=== PATIENT | female | born 1995 | race Caucasian/White ===

== ENCOUNTER 2018-01-29 16:12 | Outpatient (CLI) | payer OTHER ==
--- NOTE | 2018-01-29 16:56 | Non Stress Test Report ---
Non Stress Test Datetime Report Generated by CPN: 01/29/2018 16:56 DEMOGRAPHIC EGA NST: 40.0 INDICATION Indication for Study: Ordered by Provider MONITORING Monitor Explained: Monitor Explained; Test Explained; Patient Verbalized Understanding Time on Monitor: 01/29/2018 16:21 Time off Monitor: 01/29/2018 16:44 NST Duration: 23 NST INTERVENTIONS NST Interventions: PO Hydration; Reposition Patient Physician Notified NST: J.Harvey, CNM BABY A: [id number] BABY A Movement : Present Contraction Frequency : Irregular FHR Baseline : 130 Accelerations : 15X15 Decelerations : None Variability : Moderate 6-25bpm NST Review: Meets Criteria for Reactive NST NST Review and Verified By : Paula Carrillo RN NST Results: Reactive NST REPORT Report Trigger: Send Report
== END 2018-01-29 16:51 | disposition home or self-care (01) ==
LOC: LC 16:12
PROVIDERS: ATTEND Obstetrics & Gynecology
PROC: 4A1HXCZ Monitoring of Products of Conception, Cardiac Rate, External Approach (ICD-10-PCS; principal; 2018-01-29)
DX: O48.0 Post-term pregnancy (principal); Z3A.40 40 weeks gestation of pregnancy
CPT/HCPCS: 59025

== ENCOUNTER 2018-02-04 14:25 | Outpatient (CLI) | payer OTHER ==
[2018-02-04 15:26] LABS: APPEARANCE,URINE CLEAR; BILIRUBIN,URINE NEGATIVE (NEGATIVE); COLOR,URINE STRAW; GLUCOSE, URINE NEGATIVE (NEGATIVE); KETONES,URINE NEGATIVE (NEGATIVE); LEUKOCYTE ESTERASE,URINE TRACE (NEGATIVE); NITRITE,URINE NEGATIVE (NEGATIVE); PROTEIN,URINE NEGATIVE (NEGATIVE); URINE SPECIFIC GRAVITY 1.005; UROBILINOGEN,URINE NEGATIVE mg/dL (<2.0)
--- NOTE | 2018-02-04 15:28 | Non Stress Test Report ---
Non Stress Test Datetime Report Generated by CPN: 02/04/2018 15:28 DEMOGRAPHIC EGA NST: 40.6 INDICATION Indication for Study: Other Indication for Study (NST) Other: Labor Check MONITORING Monitor Explained: Monitor Explained; Test Explained; Patient Verbalized Understanding Time on Monitor: 02/04/2018 14:43 Time off Monitor: 02/04/2018 15:13 NST Duration: 30 NST INTERVENTIONS Physician Notified NST: Dr. Maki BABY A: [id number] BABY A Movement : Present Contraction Frequency : 3-5 FHR Baseline : 145 Accelerations : 15X15 Decelerations : None Variability : Moderate 6-25bpm NST Review: Meets Criteria for Reactive NST NST Review and Verified By : B Baidy RN NST Results: Reactive NST REPORT Report Trigger: Send Report
[2018-02-04 15:44] LABS: URINE AMPHETAMINES SCREEN NEGATIVE; URINE BARBITURATES SCREEN NEGATIVE; URINE BENZODIAZEPINES SCREEN NEGATIVE; URINE COCAINE SCREEN NEGATIVE; URINE MARIJUANA (THC) SCREEN NEGATIVE; URINE METHADONE SCREEN NEGATIVE; URINE PHENCYCLIDINE SCREEN NEGATIVE
== END 2018-02-04 16:04 | disposition home or self-care (01) ==
LOC: LC 14:25
PROVIDERS: ATTEND Obstetrics & Gynecology Gynecology
PROC: 4A1HXCZ Monitoring of Products of Conception, Cardiac Rate, External Approach (ICD-10-PCS; principal; 2018-02-04)
DX: O48.0 Post-term pregnancy (principal); Z3A.40 40 weeks gestation of pregnancy
CPT/HCPCS: 59025; 80307; 81005

== ENCOUNTER 2018-02-05 03:19 | Inpatient (IN) | payer OTHER ==
[2018-02-05] MEDS ORDERED: PENICILLIN G POTASSIUM 5,000,000 UNIT in DEXTROSE 5%-WATER 100 ML IV ONE (03:45)
[2018-02-05] MEDS ORDERED: PENICILLIN G-K 5 MILLION UNIT VIAL ONE ×4 (03:50→15:52)
[2018-02-05 04:01] LABS: ABSOLUTE BASOPHILS # (AUTO) 0.1 10^3/uL (0.0-0.2); ABSOLUTE LYMPHOCYTES (AUTO) 1.7 10^3/uL (0.5-4.7); ABSOLUTE MONOCYTES (AUTO) 1.1 10^3/uL (0.1-1.4); ABSOLUTE NEUT (AUTO) 13.1 10^3/uL (1.7-8.2); BASOPHILS % (AUTO) 0.4 % (0-2); EOSINOPHILS % (AUTO) 0.2 % (0-6); HEMATOCRIT 35.7 % (36.0-47.0); HEMOGLOBIN 12.3 g/dL (12.0-15.5); LYMPHOCYTES % (AUTO) 10.9 % (13-45); MEAN CORPUSCULAR HEMOGLOBIN 30.8 pg (27.0-33.4); MEAN CORPUSCULAR HGB CONC 34.4 g/dL (32.0-36.0); MEAN CORPUSCULAR VOLUME 89 fl (80-97); MONOCYTES % (AUTO) 7.1 % (3-13); PLATELET COUNT 200 10^3/uL (150-450); RED BLOOD COUNT 3.99 10^6/uL (3.72-5.28); RED CELL DISTRIBUTION WIDTH 13.6 % (11.5-14.0); SEGMENTED NEUTROPHILS % (AUTO) 81.4 % (42-78); TOTAL CELLS COUNTED % (AUTO) 100 %
[2018-02-05] MEDS: RINGERS SOLUTION,LACTATED 1,000 ML IV PRN ×2 (04:12→16:47)
[2018-02-05] MEDS ORDERED: NALBUPHINE HCL INJ 10 MG/1 ML AMPULE ONE (04:20)
[2018-02-05] MEDS ORDERED: PROMETHAZINE HCL INJ 25 MG/1 ML VIAL ONE (04:20)
[2018-02-05 04:28] LABS: APPEARANCE,URINE CLOUDY; BILIRUBIN,URINE NEGATIVE (NEGATIVE); COLOR,URINE YELLOW; GLUCOSE, URINE NEGATIVE (NEGATIVE); KETONES,URINE TRACE mg/dL (NEGATIVE); LEUKOCYTE ESTERASE,URINE MODERATE (NEGATIVE); NITRITE,URINE NEGATIVE (NEGATIVE); PROTEIN,URINE 30 mg/dL (NEGATIVE); URINE SPECIFIC GRAVITY 1.019; UROBILINOGEN,URINE NEGATIVE mg/dL (<2.0)
[2018-02-05 04:45] LABS: URINE AMPHETAMINES SCREEN NEGATIVE; URINE BARBITURATES SCREEN NEGATIVE; URINE BENZODIAZEPINES SCREEN NEGATIVE; URINE COCAINE SCREEN NEGATIVE; URINE MARIJUANA (THC) SCREEN NEGATIVE; URINE METHADONE SCREEN NEGATIVE; URINE PHENCYCLIDINE SCREEN NEGATIVE
[2018-02-05] MEDS ORDERED: RINGERS SOLUTION,LACTATED 300 ML IV ONE (06:08)
[2018-02-05] MEDS ORDERED: OXYTOCIN/NORMAL SALINE 0 UNIT/0 ML RTUINJ ONE (06:25)
[2018-02-05] MEDS ORDERED: OXYTOCIN/NORMAL SALINE 20 UNIT/1,000 ML RTUINJ IV PRN ×2 (06:30→21:19)
[2018-02-05] MEDS: PENICILLIN G POTASSIUM 2,500,000 UNIT in DEXTROSE 5%-WATER 50 ML IV SCH ×4 (07:58→22:27)
[2018-02-05] MEDS ORDERED: BUPIVACAINE HCL 0.5 % INJ/PF 30 ML SDV ONE (08:31)
[2018-02-05] MEDS ORDERED: MISOPROSTOL 0.2 MG TABLET ONE (08:31)
[2018-02-05] MEDS ORDERED: EPHEDRINE SULFATE INJ 50 MG/1 ML AMPULE ONE ×2 (08:31→20:18)
[2018-02-05] MEDS ORDERED: FENTANYL/BUPIVACAINE/NS/PF 300 MCG/150 ML RTUINJ EPI ONE (08:31)
[2018-02-05] MEDS ORDERED: OXYTOCIN/NORMAL SALINE 20 UNIT/1,000 ML RTUINJ ONE ×2 (08:31→20:18)
[2018-02-05] MEDS ORDERED: LIDOCAINE 1% INJ-PF (10 MG/ML) 30 ML SDV ONE (08:31)
--- NOTE | 2018-02-05 12:56 | Admission Physical ---
Datetime Report Generated by CPN: 02/05/2018 12:55 CURRENT ADMISSION Chief Complaint: Scheduled Induction of Labor Indication for Induction: Post Dates Admit Impression : Term, Intrauterine Admit Plan: Admit to Unit; Initiate Labor Induction Protocol ALLERGIES Medication Allergies: No Medication Allergies: No Known Allergies (02/05/2018) Latex: No Latex Allergies Food Allergies: N/A Environmental Allergies: N/A OBSTETRICAL HISTORY EDC: 01/29/2018 00:00 : 1 Para: 0 Term: 0 : 0 SAB: 0 IAB: 0 Ectopic: 0 Livin Cesareans: 0 VBACs: 0 Multiple Births: 0 Gestational Diabetes: No Rh Sensitization: No Incompetent Cervix: No OLAF: No Infertility: No ART Treatment: No Uterine Anomaly: No IUGR: No Hx Previous C/S: No Macrosomia: No Hx Loss/Stillborn: No PIH: No Hx : No Placenta Previa/Abruption: No Depression/PP Depression: No PTL/PROM: No Post Hemorrhage: No Current Procedures: Ultrasound; NST Obstetrical History Comments: G1 - Current SEE RECORDS Alcohol: No Marijuana : No Cocaine: No Other Illicit Drugs: No Cigarettes: Never Smoker. [id number] MEDICAL HISTORY Diabetes: No Blood Transfusion: No Pulmonary Disease (Asthma, TB): No Breast Disease: No Hypertension: No Habitat Biologist Surgery: No Heart Disease: No Hosp/Surgery: No Autoimmune Disorder: No Anesthetic Complications: No Kidney Disease: No Abnormal Pap Smear: No Neuro/Epilepsy: No Psychiatric Disorders: No Other Medical Diseases: No Hepatitis/Liver Disease: No Significant Family History: No Varicosities/Phlebitis: No Trauma/Violence : No Thyroid Dysfunction: No INFECTIOUS HISTORY Gonorrhea: No Genital Herpes: Yes Chlamydia: Yes Tuberculosis: No Syphilis: No Hepatitis: No HIV/AIDS Exposure: No Rash or Viral Illness: No HPV: No Infectious History Comments: Herpes - 2017 PHYSICAL EXAM General: Normal HEENT: Normal Neurologic: Normal Thyroid: Deferred Heart: Normal Lungs: Normal Breast: Deferred Back: Normal Abdomen: Normal Genitourinary Exam: Normal Extremities: Normal DTRs: Deferred Pelvic Type: Not Done Vital Signs: Reviewed; Within Normal Limits Details Vital Signs: lowered with epidural-received ephedrine VAGINAL EXAM Dilatation: 5 Effacement: 80 Station: -1 Contraction Comments: Q3-5 mins MEMBRANES Pooling: Negative Membranes: Intact FETUS A EGA: 41.0 Monitoring: External US FHR- Baseline: 155 Variability: Moderate 6-25bpm Accelerations: 10X10 Decelerations: Variable FHR Category: Category II Estimated Weight (gm): 3300 Presentation: Vertex Admit Comment: admitted in early labor for scheduled IOL, pitocin augmentation, GBS pos. P:penicillin for GBS prophylaxis, continue pitocin, anticipate PLANS FOR LABOR AND DELIVERY Labor and Delivery: None Pain Management: Epidural Feeding Preference: Breast Benefit of Breast Feed Discussed: Yes Circumcision: Yes INFORMED CONSENT Assignment: Natalie Flor MD Signature: with User ID: [email or web address] : with User ID: [email or web address]
[2018-02-05] MEDS ORDERED: CITRIC ACID/SODIUM CITRATE ORAL SOLN 15 ML UDCUP ONE (19:36)
[2018-02-05] MEDS ORDERED: CEFAZOLIN 2 GM/D5W RTU 2 GM/50 ML RTUPB IV ONE (19:36)
[2018-02-05] MEDS ORDERED: MIDAZOLAM 2 MG/2 ML INJ ONE (20:18)
[2018-02-05] MEDS ORDERED: OXYTOCIN 10 UNIT/ML VIAL ONE (20:18)
[2018-02-05] MEDS ORDERED: ONDANSETRON HCL INJ/PF 4 MG/2 ML SDV ONE (20:18)
[2018-02-05] MEDS ORDERED: ACETAMINOPHEN 1,000 MG/100 ML RTUPB IV ONE (20:18)
[2018-02-05] MEDS ORDERED: KETOROLAC TROMETHAMINE INJ/PF 30 MG/1 ML SDV ONE (20:18)
[2018-02-05] MEDS ORDERED: FENTANYL CITRATE INJ/PF 100 MCG/2 ML AMPUL ONE (20:18)
[2018-02-05] MEDS ORDERED: ACETAMINOPHEN 1,000 MG/100 ML RTUPB IV PRN (21:19)
[2018-02-05] MEDS ORDERED: OXYCODONE-ACETAMINOPHEN 5-325 MG TABLET PO PRN (21:19)
[2018-02-05] MEDS ORDERED: PROMETHAZINE HCL INJ 25 MG/1 ML VIAL IV PRN (21:19)
[2018-02-05] MEDS ORDERED: ACETAMINOPHEN 325 MG TABLET PO PRN (21:19)
[2018-02-05] MEDS ORDERED: MEASLES,MUMPS&RUBELLA VACC/PF 0.5 ML VIAL SUBCUT PRN (21:19)
[2018-02-05] MEDS ORDERED: DIPH/PERTUSS(ACELL)/TETANUS VAC/PF 0.5 ML SYR (>=10YO) IM PRN (21:19)
[2018-02-05] MEDS ORDERED: SIMETHICONE 80 MG TAB.CHEW PO PRN (21:19)
[2018-02-05] MEDS ORDERED: RINGERS SOLUTION,LACTATED 1,000 ML IV PRN (21:19)
[2018-02-05] MEDS: OXYCODONE-ACETAMINOPHEN 5-325 MG TABLET PO PRN (22:00)
[2018-02-05] MEDS ORDERED: OXYCODONE-ACETAMINOPHEN 5-325 MG TABLET ONE (22:01)
--- NOTE | 2018-02-05 22:13 | Warning Signs in Babies ---
VOD Warning Signs Datetime Report Generated by [facility]: 02/05/2018 22:13 VOD#608 -Warning Signs in Babies: Needs to be viewed. (01/29/2018 16:22:Yana Lora RN)
[2018-02-05] MEDS ORDERED: MORPHINE SULFATE 10 MG/ML INJ ONE (23:06)
[2018-02-05] MEDS: MORPHINE SULFATE 10 MG/ML INJ IV PRN (23:11)
[2018-02-06] MEDS: OXYCODONE-ACETAMINOPHEN 5-325 MG TABLET PO PRN ×4 (02:05→22:18)
--- NOTE | 2018-02-06 02:48 | Delivery Summary ---
Del Sum A-C Datetime Report Generated by CPN: 02/06/2018 02:47 DELIVERY PERSONNEL DELIVERY PERSONNEL: [id number] Delivery Doctor:: Natalie Flor MD Anesthesiologist:: Hebert Lindsay MD COLLECTIONS ASSOCIATE:: Brandin Cabrera COLLECTIONS ASSOCIATE Labor and Delivery Nurse:: Yana Lora RNgarment patternmaker Nurse:: Aysha Jimenez RN School Standards Coach:: Yana Lora RN Head Girls Golf Coach/MANAGER GYN: [facility] Head Girls Golf Coach/MANAGER GYN: Una Hoover, ST MATERNAL INFORMATION Delivery Anesthesia: Epidural Medications After Delivery: Pitocin Drip 20 Units/1000ml NSS Estimated Blood Loss (ml): 600 Maternal Complications: None LABOR SUMMARY EDC: 01/29/2018 00:00 Attempted: No Labor Anesthesia: Epidural LABOR INFORMATION Reason for Induction: Post Dates Onset of Labor: 02/05/2018 12:26 Oxytocin: Induction Group B Beta Strep: positive Antibiotics # of Doses: 4 Antibiotics Time of Last Dose: 1601 Name of Antibiotic Given: PCN Steroids Given: None Reason Steroids Not Administered: Not Applicable MEMBRANES Membranes Rupture Method: Artificial Rupture of Membranes: 02/05/2018 15:10 Length of Rupture (hr): 5.55 Amniotic Fluid Color: Clear Amniotic Fluid Amount: Scant Amniotic Fluid Odor: Normal STAGES OF LABOR Stage 3 hr: 0 Stage 3 min: 1 Total Time in Labor hr: 8 Total Time in Labor min: 18 VAGINAL DELIVERY Episiotomy: None Laceration #1: None Laceration Extension #1: N/A Laceration Repair: Not Applicable Sponge Count Correct: N/A Sharps Count Correct: N/A CSECTION DELIVERY Primary Indication: Failure to Progress Secondary Indication: Malposition CSection Urgency: Non-Scheduled CSection Incidence: Primary Labor: Labor Elective: N/A CSection Incision: Lower Uterine Transverse BABY A INFORMATION Delivery Date/Time: 02/05/2018 20:43 Method of Delivery: Born in Route : No : N/A Forceps: N/A Vacuum Extraction: N/A Shoulder Dystocia : No PRESENTATION/POSITION BABY A Presentation: Cephalic Cephalic Presentation: Vertex Vertex Position: Direct OP Breech Presentation: N/A PLACENTA INFORMATION BABY A Placenta Delivery Time : 02/05/2018 20:44 Placenta Method of Delivery: Manual Removal Placenta Status: Delivered SCORES BABY A Heart Rate 1 min: >100 bpm Resp Effort 1 min: Good Cry Reflex Irritability 1 min: Cough or Sneeze or Pulls Away Muscle Tone 1 min: Active Motion Color 1 min: Blue/Pale Resuscitation Effort 1 min: Tactile Stimulation SCORE 1 MIN: 8 Heart Rate 5 min: >100 bpm Resp Effort 5 min: Good Cry Reflex Irritability 5 min: Cough or Sneeze or Pulls Away Muscle Tone 5 min: Active Motion Color 5 min: Body [place], Extremities Blue Resuscitation Effort 5 min: Tactile Stimulation SCORE 5 MIN: 9 INFANT INFORMATION BABY A Gestational Age at Delivery: 41.0 Gestational Status: Late Term- 41- 41.6 Weeks Infant Outcome : Liveborn Condition : Stable Sex: Male WEIGHT/LENGTH BABY A Birthweight (gm): 3400 Weight (lb): 7 Weight (oz): 8 Length (in): 20.50 Infant Length (cm): 52.07 CORD INFORMATION BABY A No. Cord Vessels: 3 Nuchal Cord : N/A Cord Blood Taken: Yes-For Storage (Mom's Blood type +) Suction: Mouth; Nose ASSESSMENT BABY A Skin to Skin: Yes Care By: Pingr RN Transferred To: [facility] BABY B INFORMATION : N/A SIGNATURES : I was personally available for consultation and serving as supervising physician for the MLP.
[2018-02-06] MEDS: MORPHINE SULFATE 10 MG/ML INJ IV PRN (03:04)
[2018-02-06] MEDS: KETOROLAC TROMETHAMINE INJ/PF 30 MG/1 ML SDV IV SCH ×2 (05:35→13:40)
[2018-02-06 06:48] LABS: HEMATOCRIT 25.2 % (36.0-47.0); MEAN CORPUSCULAR HEMOGLOBIN 31.4 pg (27.0-33.4); MEAN CORPUSCULAR HGB CONC 34.8 g/dL (32.0-36.0); MEAN CORPUSCULAR VOLUME 90 fl (80-97); PLATELET COUNT 125 10^3/uL (150-450); RED BLOOD COUNT 2.79 10^6/uL (3.72-5.28); RED CELL DISTRIBUTION WIDTH 13.3 % (11.5-14.0); WHITE BLOOD COUNT 12.8 10^3/uL (4.0-10.5)
[2018-02-06 06:49] LABS: HEMOGLOBIN 8.8 g/dL (12.0-15.5)
--- NOTE | 2018-02-06 08:41 | OPERATIVE REPORT E ---
Operative Report NAME: MARLI JORGE : 1995 AGE: 22Y DATE OF SURGERY: 02/05/2018 ROOM: 215 PREOPERATIVE DIAGNOSES: 1. IUP at 41 weeks and 0 days. 2. Failure to descend. 3. Cephalopelvic disproportion. 4. malpresentation. POSTOPERATIVE DIAGNOSES: 1. IUP at 41 weeks and 0 days. 2. Failure to descend. 3. Cephalopelvic disproportion. 4. malpresentation. SURGEON: IHSAN VALLECILLO M.D. ANESTHESIA: Dr. Lindsay with an epidural. FINDINGS: Male infant in cephalic presentation, direct OP, Apgars of 8 and 9, copious meconium. COMPLICATIONS: None. ESTIMATED BLOOD LOSS: 600 mL. PROCEDURE: A low transverse hysterotomy section. PROCEDURE IN DETAIL: The patient was taken to the operating room and prepared and draped in the normal sterile fashion in the supine position with a leftward tilt. A transverse skin incision was made with the scalpel and carried through to the underlying layer of fascia. With the same scalpel, the fascia was excised in the midline and extended laterally with Monreal's. The fascia was dissected from the rectus muscle bluntly and the rectus muscle and peritoneum were divided with good visualization of the bladder and the uterus. The bladder blade was inserted. The hysterotomy was nicked with a scalpel and extended laterally with surgeon finger fracture. The 's head was well wedged in the pelvis. I was able to reach beneath the head and flex the head and then delivered the baby without difficulty afterwards. The nose and mouth were suctioned with a suction bulb. The cord was clamped and cut and the was handed off to awaiting pediatricians. The cord blood was collected. The placenta was removed manually. Uterus was exteriorized and cleared of clots and debris. The hysterotomy was closed with 0 Monocryl in a running, locked fashion and a second layer of the same suture was used to imbricate to ensure hemostasis. The uterus was returned to the abdomen and the peritoneal cavity was cleared of clots and debris. The rectus muscle and peritoneum were reapproximated with a mattress stitch of 2-0 Chromic. The fascia was closed with 0 Vicryl. The subcutaneous layer was closed with plain catgut and the skin was closed with 4-0 Vicryl. The patient tolerated the procedure well. Sponge, lap, and needle counts were correct x2, and the patient was taken to recovery in stable condition. DICTATING PHYSICIAN: IHSAN VALLECILLO M.D. [id number] PHY#: [id number] ID: [id number] JOB#: [id number] ACCT: [id number] cc:IHSAN VALLECILLO M.D. >
--- NOTE | 2018-02-06 09:00 | PDOC PROGRESS REPORT ---
Subjective-OB Progress Note for:: 02/06/18 Physical Exam (OB) Vital Signs: Temp Pulse Resp BP Pulse Ox 97.7 F 70 18 108/46 L 97 02/06/18 07:31 02/06/18 07:31 02/06/18 07:31 02/06/18 07:31 02/06/18 07:31 Intake & Output 02/05/18 02/06/18 02/07/18 06:59 06:59 06:59 Intake Total 2200 Output Total 1750 Balance 450 Weight 88 kg - General General Appearance: Appears well - Dressing Removed: No - honeycomb Incision: Dressing Closure Type: Sutures - Lochia Lochia Amount: Scant < 10 ml Lochia Color: Rubra/Red - Abdomen Description: Tender, Soft, Flat Hernia Present: No Flatus Presence: Present Fundal Description: Firm, Midline Fundal Height: u/u - u/2 - Respiratory Breath sounds: Clear - Extremities Calf: Normal Objective-Diagnostic Laboratory: 02/06/18 06:22 02/06/18 06:22 WBC 12.8 H RBC 2.79 L Hgb 8.8 L D Hct 25.2 L MCV 90 MCH 31.4 MCHC 34.8 RDW 13.3 Plt Count 125 L Assessment and Plan(PN) - Assessment and Plan (1) Previous section complicating , with delivery Is this a current diagnosis for this admission?: Yes - Time Spent with Patient Time with patient: Less than 15 minutes - Disposition Anticipated Discharge: Home Within: within 24 hours
[2018-02-06] MEDS: PRENATAL VITAMIN W DHA CAPSULE PO SCH (09:29)
[2018-02-06] MEDS: DOCUSATE SODIUM 100 MG CAPSULE PO SCH ×2 (09:29→18:27)
[2018-02-06] MEDS: IBUPROFEN 800 MG TABLET PO SCH (20:41)
[2018-02-07] MEDS: IBUPROFEN 800 MG TABLET PO SCH ×2 (02:13→10:19)
[2018-02-07] MEDS ORDERED: IBUPROFEN 800 MG TABLET PO SCH (06:00)
--- NOTE | 2018-02-07 09:43 | PDOC DISCHARGE SUMMARY ---
Final Diagnosis Discharge Date: 02/07/18 - Final Diagnosis (1) S/P primary low transverse Is this a current diagnosis for this admission?: Yes Discharge Data - Discharge Medication Home Medications: No122/Iron/Folic Acid [ Multi Tablet] 1 each PO DAILY 01/29/18 Valacyclovir HCl [Valtrex 500 mg Tablet] 1 tab PO DAILY 01/29/18 Reason(s) for Admission: Induction of Labor Procedures: NST Intrapartum Procedure(s): : Low Cervical, Transverse - Diagnosis Test Laboratory: Temp Pulse Resp BP Pulse Ox 98.1 F 73 16 111/64 97 02/07/18 08:03 02/07/18 08:03 02/07/18 08:03 02/07/18 08:03 02/07/18 08:03 02/05/18 02/05/18 02/06/18 03:33 03:47 06:22 RBC 3.99 2.79 L Hgb 12.3 8.8 L D Hct 35.7 L 25.2 L Urine Opiates Screen NEGATIVE - Discharge information/Instructions Discharge Activity: Balance Activity w/Rest, No Lifting Over 10 Pounds, No Lifting/Push/Pulling, No tub bath Discharge Diet: Regular Disposition: HOME, SELF-CARE Follow up with: [facility] in: 1, Weeks
[2018-02-07] MEDS: DOCUSATE SODIUM 100 MG CAPSULE PO SCH (10:19)
[2018-02-07] MEDS: PRENATAL VITAMIN W DHA CAPSULE PO SCH (10:20)
[2018-02-07 12:26] VITALS: BP 146/82
== END 2018-02-07 13:37 | disposition home or self-care (01) | DRG 788 ==
LOC: LC 03:19 → LR 03:28 → 2S 23:30
PROVIDERS: ADMIT Obstetrics & Gynecology; ATTEND Obstetrics & Gynecology
PROC: 10D00Z1 Extraction of Products of Conception, Low, Open Approach (ICD-10-PCS; principal; 2018-02-05)
PROC: 4A1HXCZ Monitoring of Products of Conception, Cardiac Rate, External Approach (ICD-10-PCS; 2018-02-05)
DX: O65.4 Obstructed labor due to fetopelvic disproportion, unspecified (principal); O77.0 Labor and delivery complicated by meconium in amniotic fluid; O48.0 Post-term pregnancy; O99.824 Streptococcus B carrier state complicating childbirth; O62.2 Other uterine inertia; Z3A.41 41 weeks gestation of pregnancy; Z37.0 Single live birth; Z86.19 Personal history of other infectious and parasitic diseases
CPT/HCPCS: 1961; 36415; 59025; 80307; 81005; 85025; 85027; 86592; 86695; 86850; 86900; 86901; 94760; 94799; J0131; J0690; J1885; J2250; J2270; J2300; J2405; J2540; J2550; J2590; J3010; J3490